=== PATIENT | male | born 1975 | race Caucasian/White ===

== ENCOUNTER 2024-02-22 19:05 | Emergency (ER) | payer BC, SELFPAY ==
[2024-02-22 19:12] VITALS: BP 149/98; PULSE 99; TEMP 36.7; O2SAT 98; BMI 38.7
[2024-02-22 19:22] LABS: Glucometer 430 mg/dL (74-106)
--- NOTE | 2024-02-22 19:26 | ED_ITS ---
HPI HPI - General Adult General Chief complaint: Recheck/Abnormal Lab/Rx Stated complaint: Hyperglycemia Time Seen by Provider: 02/22/24 19:15 Source: patient Mode of arrival: walk-in History of Present Illness HPI narrative: Patient is a 48-year-old male who presents to the emergency department for elevated blood sugars. He states he has had polyuria, polydipsia and some fuzziness in his vision. He saw an eye doctor today who told him to check his blood sugar and it was elevated. He has been on metformin in the past but states he has not been prescribed that medication in a while because his blood sugars were controlled. He does take a blood pressure medication. He has no other focal medical complaints, recent illness, fevers, chills, nausea, vomiting. [id number] glucose at triage is 430. Related Data Home Medications ?Medication ?Instructions ?Recorded ?Confirmed Unobtainable 02/22/24 02/22/24 Previous Rx's ?Medication ?Instructions ?Recorded metformin 750 mg tablet,extended 750 mg PO DAILY #20 tabs 02/22/24 release 24 hr Allergies Allergy/AdvReac Type Severity Reaction Status Date / Time No Known Drug Allergies Allergy Verified 02/22/24 19:19 Opioid HPI Opioid Management Most Recent Opioid Data: No Data to Display Review of Systems ROS Constitutional Denies: fever or chills Ears, nose, mouth, and throat Denies: throat pain or nasal congestion Cardiovascular Denies: chest pain Respiratory Denies: shortness of breath or cough Gastrointestinal Denies: nausea or vomiting Genitourinary Reports: urinary frequency Integumentary/Breast Denies: rash Neurological Denies: headache Endocrine Reports: excessive urination and excessive thirst Exam Narrative Exam Narrative: Gen.: Awake, alert, in no distress Head: Normocephalic, atraumatic ENT: Moist mucous membranes Respiratory: No respiratory distress, lungs clear bilaterally Cardio: Regular rate and rhythm Extremities: Moves extremities equally Psych: Normal mood and affect Neuro: No focal neuro deficit Skin: Warm, dry, intact Constitutional Vital Signs, click to edit/add: Last Vital Signs Temp 98.1 F 02/22/24 19:12 Pulse 99 H 02/22/24 19:12 Resp 18 02/22/24 19:12 BP 149/98 H 02/22/24 19:12 Pulse Ox 98 02/22/24 19:12 O2 Del Method Room Air 02/22/24 19:12 Course Vital Signs Vital signs: Vital Signs Temperature 98.1 F 02/22/24 19:12 Pulse Rate 99 H 02/22/24 19:12 Respiratory Rate 18 02/22/24 19:12 Blood Pressure 149/98 H 02/22/24 19:12 Pulse Oximetry 98 02/22/24 19:12 Oxygen Delivery Method Room Air 02/22/24 19:12 Temperature 98.1 F 02/22/24 19:12 Pulse Rate 99 H 02/22/24 19:12 Respiratory Rate 18 02/22/24 19:12 Blood Pressure 149/98 H 02/22/24 19:12 Pulse Oximetry 98 02/22/24 19:12 Oxygen Delivery Method Room Air 02/22/24 19:12 Medical Decision Making MDM Narrative Medical decision making narrative: Patient found to have trace ketones and small acetone on his lab studies although his vital signs are normal, he is not actively vomiting and his lactic acid and bicarb are normal. He was treated with 15 units of subcutaneous insulin with some improvement of blood sugar and will be given a first dose of metformin. He found his old prescription of metformin at home, he takes extended release, 750 mg metformin daily. He has not been on this medication for many months. He was given a new prescription of the metformin, encouraged to watch his diet and follow-up with his PCP. Return to the ER if symptoms change or worsen. He verbalizes understanding Medical Records Medical records reviewed: Yes I reviewed the patient's medical records Lab Data Lab results reviewed: Yes I reviewed the patient's lab results Labs: Lab Results 02/22/24 02/22/24 02/22/24 Range/Units 19:19 19:25 19:32 WBC 9.6 (4.0-11.0) 10^3/uL RBC 3.86 L (4.70-6.10) 10^6/uL Hgb 13.8 L (14.0-18.0) g/dL Hct 39.3 L (42.0-54.0) % MCV 101.8 H (80.0-94.0) fL MCH 35.8 H (25.9-34.0) pg MCHC 35.1 (29.9-35.2) g/dL RDW 11.8 (11.0-15.0) % Plt Count 234 (150-450) 10^3/uL MPV 11.2 (9.5-13.5) fL Neut % (Auto) 45.8 (43.0-75.0) % Lymph % (Auto) 42.5 (20.5-60.0) % [place] % (Auto) 6.6 (1.7-12.0) % Eos % (Auto) 3.4 (0.9-7.0) % Baso % (Auto) 1.0 (0.2-2.0) % Neut # (Auto) 4.4 (1.4-6.5) 10^3/uL Lymph # (Auto) 4.1 H (1.2-3.8) 10^3/uL [place] # (Auto) 0.6 (0.3-0.8) 10^3/uL Eos # (Auto) 0.3 (0.0-0.7) 10^3/uL Baso # (Auto) 0.1 (0.0-0.1) 10^3/uL Abs Immat Gran (auto) 0.07 H (0.00-0.03) 10^3/uL Imm/Tot Granulo (auto) 0.7 H (0.0-0.5) % Sodium 133 L (136-145) mmol/L Potassium 3.9 (3.5-5.1) mmol/L Chloride 100 (98-107) mmol/L Carbon Dioxide 21.6 (21.0-32.0) mmol/L Anion Gap 15.3 BUN 18.0 (7.0-18.0) mg/dL Creatinine 1.13 (0.70-1.30) mg/dL Est GFR ( Amer) >60 (>=60) Est GFR (Non-Af Amer) >60 (>=60) BUN/Creatinine Ratio 15.9 Glucose 428 H (74-106) mg/dL Lactate 0.9 (0.4-2.0) mmol/L Calcium 9.2 (8.5-10.1) mg/dL Total Bilirubin 0.3 (0.2-1.0) mg/dL AST 30 (15-37) U/L ALT 80 H (16-63) U/L Alkaline Phosphatase 78 (46-116) U/L Total Protein 7.4 (6.4-8.2) g/dL Albumin 3.7 (3.4-5.0) g/dL Globulin 3.7 g/dL Albumin/Globulin Ratio 1.0 Urine Color Lt. yellow (YELLOW) Urine Clarity Clear (CLEAR) Urine pH 5.5 (5.0-9.0) Ur Specific [place] 1.010 (1.005-1.025) Urine Protein Negative (NEG/TRACE) mg/dL Urine Glucose (UA) >=1000 A (NEGATIVE) mg/dL Urine Ketones 15 A (NEGATIVE) mg/dL Urine Occult Blood Moderate A (NEGATIVE) Urine Nitrite Negative (NEGATIVE) Urine Bilirubin Negative (NEGATIVE) Urine Urobilinogen 0.2 (0.2-1.0) EU/dL Ur Leukocyte Esterase Negative (NEGATIVE) Urine RBC 0-2 (0-2) #/HPF Urine WBC None seen (NONE SEEN) #/HPF Ur Squamous Epith Cells None seen (NONE/RARE) #/LPF Urine Crystals None seen (None Seen) #/HPF Urine Bacteria None seen (NONE SEEN) #/HPF Urine Casts None seen (NONE SEEN) #/LPF Urine Mucus None seen (NONE SEEN) Ur Culture Indicated? No Acetone, Qual Small A (NEGATIVE) POC Glucose 430 H (74-106) mg/dL 02/22/24 Range/Units 20:35 WBC (4.0-11.0) 10^3/uL RBC (4.70-6.10) 10^6/uL Hgb (14.0-18.0) g/dL Hct (42.0-54.0) % MCV (80.0-94.0) fL MCH (25.9-34.0) pg MCHC (29.9-35.2) g/dL RDW (11.0-15.0) % Plt Count (150-450) 10^3/uL MPV (9.5-13.5) fL Neut % (Auto) (43.0-75.0) % Lymph % (Auto) (20.5-60.0) % [place] % (Auto) (1.7-12.0) % Eos % (Auto) (0.9-7.0) % Baso % (Auto) (0.2-2.0) % Neut # (Auto) (1.4-6.5) 10^3/uL Lymph # (Auto) (1.2-3.8) 10^3/uL [place] # (Auto) (0.3-0.8) 10^3/uL Eos # (Auto) (0.0-0.7) 10^3/uL Baso # (Auto) (0.0-0.1) 10^3/uL Abs Immat Gran (auto) (0.00-0.03) 10^3/uL Imm/Tot Granulo (auto) (0.0-0.5) % Sodium (136-145) mmol/L Potassium (3.5-5.1) mmol/L Chloride (98-107) mmol/L Carbon Dioxide (21.0-32.0) mmol/L Anion Gap BUN (7.0-18.0) mg/dL Creatinine (0.70-1.30) mg/dL Est GFR ( Amer) (>=60) Est GFR (Non-Af Amer) (>=60) BUN/Creatinine Ratio Glucose (74-106) mg/dL Lactate (0.4-2.0) mmol/L Calcium (8.5-10.1) mg/dL Total Bilirubin (0.2-1.0) mg/dL AST (15-37) U/L ALT (16-63) U/L Alkaline Phosphatase (46-116) U/L Total Protein (6.4-8.2) g/dL Albumin (3.4-5.0) g/dL Globulin g/dL Albumin/Globulin Ratio Urine Color (YELLOW) Urine Clarity (CLEAR) Urine pH (5.0-9.0) Ur Specific [place] (1.005-1.025) Urine Protein (NEG/TRACE) mg/dL Urine Glucose (UA) (NEGATIVE) mg/dL Urine Ketones (NEGATIVE) mg/dL Urine Occult Blood (NEGATIVE) Urine Nitrite (NEGATIVE) Urine Bilirubin (NEGATIVE) Urine Urobilinogen (0.2-1.0) EU/dL Ur Leukocyte Esterase (NEGATIVE) Urine RBC (0-2) #/HPF Urine WBC (NONE SEEN) #/HPF Ur Squamous Epith Cells (NONE/RARE) #/LPF Urine Crystals (None Seen) #/HPF Urine Bacteria (NONE SEEN) #/HPF Urine Casts (NONE SEEN) #/LPF Urine Mucus (NONE SEEN) Ur Culture Indicated? Acetone, Qual (NEGATIVE) POC Glucose 415 H (74-106) mg/dL Discharge Plan Discharge Stand Alone Forms: Portal Instructions Chief Complaint: Recheck/Abnormal Lab/Rx Clinical Impression: Hyperglycemia Patient Disposition: Home, Self-Care Time of Disposition Decision: 20:29 Condition: Good Prescriptions / Home Meds: New metformin 750 mg tablet extended release 24 hr 750 mg PO DAILY Qty: 20 0RF No Action Unobtainable Print Language: Bulgarian Instructions: Diabetic Hyperglycemia (ED) Referrals: WILLY FREEMAN [Primary Care Provider] - 1 week Discharge Date/Time: 02/22/24 21:08
[2024-02-22 19:38] LABS: Basophils Absolute Auto 0.1 10^3/uL (0.0-0.1); Eosinophils Absolute Auto 0.3 10^3/uL (0.0-0.7); Eosinophils Percent Auto 3.4 % (0.9-7.0); Hematocrit 39.3 % (42.0-54.0); Hemoglobin 13.8 g/dL (14.0-18.0); Immature Granulocytes Abs Auto 0.07 10^3/uL (0.00-0.03); Immature Granulocytes Pct Auto 0.7 % (0.0-0.5); Lymphocytes Absolute Auto 4.1 10^3/uL (1.2-3.8); Lymphocytes Percent Auto 42.5 % (20.5-60.0); Mean Corpuscular HGB Conc 35.1 g/dL (29.9-35.2); Mean Corpuscular Hemoglobin 35.8 pg (25.9-34.0); Mean Corpuscular Volume 101.8 fL (80.0-94.0); Mean Platelet Volume 11.2 fL (9.5-13.5); Monocytes Absolute Auto 0.6 10^3/uL (0.3-0.8); Monocytes Percent Auto 6.6 % (1.7-12.0); Neutrophils Absolute Auto 4.4 10^3/uL (1.4-6.5); Neutrophils Percent Auto 45.8 % (43.0-75.0); Platelet Count 234 10^3/uL (150-450); Red Blood Count 3.86 10^6/uL (4.70-6.10); Red Cell Distribution Width 11.8 % (11.0-15.0); White Blood Count 9.6 10^3/uL (4.0-11.0)
[2024-02-22 19:39] LABS: Bilirubin Urine NEGATIVE (NEGATIVE); Blood Urine MODERATE (NEGATIVE); Clarity Urine CLEAR (CLEAR); Color Urine LT. YELLOW (YELLOW); Glucose Urine UA >=1000 mg/dL (NEGATIVE); Ketones Urine 15 mg/dL (NEGATIVE); Leukocyte Esterase Urine NEGATIVE (NEGATIVE); Nitrite Urine NEGATIVE (NEGATIVE); Protein Urine NEGATIVE (NEG/TRACE); Urobilinogen Urine 0.2 EU/dL (0.2-1.0); pH Urine 5.5 (5.0-9.0)
[2024-02-22 19:40] LABS: Urine Microscopic Indicated YES
[2024-02-22 19:48] LABS: Bacteria Urine NONE SEEN #/HPF (NONE SEEN); Cast Seen? NONE SEEN #/LPF (NONE SEEN); Crystals Seen? None Seen #/HPF (None Seen); Mucus Urine NONE SEEN (NONE SEEN); RBC Urine 0-2 #/HPF (0-2); Squamous Epithelial Cell Urine NONE SEEN #/LPF (NONE/RARE); Urine Culture Indicated NO; WBC Urine NONE SEEN #/HPF (NONE SEEN)
[2024-02-22 19:49] LABS: Acetone SMALL (NEGATIVE)
[2024-02-22 19:57] LABS: Alanine Aminotransferase 80 U/L (16-63); Albumin Level 3.7 g/dL (3.4-5.0); Alkaline Phosphatase 78 U/L (46-116); Anion Gap 15.3; Aspartate Amino Transferase 30 U/L (15-37); BUN Creatinine Ratio 15.9; Bilirubin Total 0.3 mg/dL (0.2-1.0); Calcium 9.2 mg/dL (8.5-10.1); Carbon Dioxide 21.6 mmol/L (21.0-32.0); Chloride 100 mmol/L (98-107); Estimated GFR (African America >60 (>=60); Estimated GFR (Non-African Ame >60 (>=60); Globulin 3.7 g/dL; Glucose 428 mg/dL (74-106); Potassium 3.9 mmol/L (3.5-5.1); Sodium 133 mmol/L (136-145); Total Protein 7.4 g/dL (6.4-8.2)
[2024-02-22 20:00] LABS: Lactate/Lactic Acid 0.9 mmol/L (0.4-2.0)
[2024-02-22] MEDS: INSULIN REGULAR 300 UNITS/3 ML 15 UNIT SUBQ (20:09)
[2024-02-22 20:36] LABS: Glucometer 415 mg/dL (74-106)
[2024-02-22] MEDS: METFORMIN HCL 500 MG TABLET PO (21:00)
== END 2024-02-22 21:08 | disposition home or self-care (01) ==
PROVIDERS: Physician Assistant; Emergency Provider Internal Medicine
DX: R73.9 Hyperglycemia, unspecified (principal)
CPT/HCPCS: 36415; 36416; 80053; 81001; 82009; 82948; 83605; 85025; 99284